=== PATIENT | female | born 1985 | race African-American/Black ===

== ENCOUNTER 2021-11-18 15:00 | Emergency (ER) | payer MEDICAID ==
[2021-11-18] MEDS ORDERED: traMADol 50 MG Tab PO ONE (16:53)
== END 2021-11-18 17:07 | disposition home or self-care (01) ==
LOC: DL.ED 15:00
DX: K04.7 Periapical abscess without sinus (principal); K02.9 Dental caries, unspecified; Z72.0 Tobacco use
CPT/HCPCS: 99282; A9270-GY

== ENCOUNTER 2021-12-30 10:50 | Emergency (ER) | payer MEDICAID ==
[2021-12-30 12:05] LABS: ANION GAP 14.9 mEq/L (7-13); CHLORIDE,CL 105 mmol/L (98-107); SODIUM,NA 142 mmol/L (136-145)
[2021-12-30 12:07] LABS: ESTIMATED GFR > 60
[2021-12-30] MEDS ORDERED: Ketorolac 30 MG/ML SDV IVPUSH ONE (12:34)
[2021-12-30] MEDS ORDERED: Iopamidol 612 MG/ML 100 ML Bottle IVPUSH ONE (12:34)
== END 2021-12-30 14:55 | disposition home or self-care (01) ==
LOC: DL.ED 10:50
DX: R10.32 Left lower quadrant pain (principal); N83.202 Unspecified ovarian cyst, left side; Z79.899 Other long term (current) drug therapy
CPT/HCPCS: 36415; 74177; 80053; 81003; 81025; 82150; 83605; 83690; 85025; 96374; 99284; J1885; Q9967

== ENCOUNTER 2022-01-04 20:10 | Emergency (ER) | payer MEDICAID ==
[2022-01-04] MEDS ORDERED: diphenhydrAMINE 25 MG Tab PO ONE (20:45)
[2022-01-04 21:12] LABS: AMPHETAMINES,URINE NEGATIVE (NEGATIVE); BARBITURATES,URINE NEGATIVE (NEGATIVE); BENZODIAZEPINE,URINE NEGATIVE (NEGATIVE); MDMA (ECSTASY), URINE NEGATIVE (NEGATIVE); METHADONE,URINE NEGATIVE (NEGATIVE); METHAMPHETAMINES,URINE NEGATIVE (NEGATIVE); OPIATES,URINE NEGATIVE (NEGATIVE); OXYCODONE,URINE NEGATIVE (NEGATIVE); PHENCYCLIDINE,URINE NEGATIVE (NEGATIVE); TCA,URINE NEGATIVE (NEGATIVE)
[2022-01-04] MEDS ORDERED: Nitrofurantoin Monohydrate/Macrocrystalline 100 MG Cap PO ONE (21:18)
== END 2022-01-04 21:35 | disposition home or self-care (01) ==
LOC: DL.ED 20:10
DX: N39.0 Urinary tract infection, site not specified (principal); L29.9 Pruritus, unspecified; F17.210 Nicotine dependence, cigarettes, uncomplicated; Z91.018 Allergy to other foods
CPT/HCPCS: 80305-QW; 81001; 87086; 87088; 87186; 99282; 99283; A9270-GY